=== PATIENT | male | born 1980 | race Caucasian/White ===

== ENCOUNTER 2019-04-23 11:21 | Emergency (ER) | payer MEDICAID ==
[~2019-04-23] VITALS: Ht 180.3 cm; Wt 79.5 kg
[2019-04-23 11:24] VITALS: BP 166/111; Ht 180.3 cm; Wt 79.5 kg
[2019-04-23] MEDS ORDERED: HYDROXYZINE HCL50 MG (11:25)
[2019-04-23] MEDS ORDERED: PRINIVIL10 MG (11:25)
[2019-04-23] MEDS ORDERED: VIBRAMYCIN 100100 MG (11:25)
[2019-04-23] MEDS ORDERED: BUSPAR10 MG (11:25)
[2019-04-23] MEDS ORDERED: CHLORPROMAZINE200 MG (11:26)
[2019-04-23 11:47] LABS: APPEARANCE CLEAR (CLEAR); BILIRUBIN NEGATIVE (NEGATIVE); COLOR YELLOW (YELLOW); GLUCOSE NEGATIVE (NEGATIVE); KETONE NEGATIVE (NEGATIVE); NITRITE NEGATIVE (NEGATIVE); PROTEIN 1+ mg/dL (NEGATIVE); SPECIFIC GRAVITY 1.015 (1.005-1.020); UROBILINOGEN NORMAL (NORMAL)
[2019-04-23 11:48] LABS: BACTERIA FEW /hpf (NEGATIVE); WHITE CELLS - URINE 0-5 /hpf (NEGATIVE)
[2019-04-23 11:50] LABS: BASOPHILS 0.2 % (0-2); EOSINOPHILS 2.1 % (0-7); HEMATOCRIT 47.1 % (42.0-54.0); HEMOGLOBIN 16.8 g/dL (13.5-17.5); IMMATURE GRANULOCYTES 0.2 % (0-5); LYMPHOCYTES 23.2 % (15-50); MCH 31.3 pg (26.0-34.0); MCHC 35.7 g/dL (31.0-37.0); MCV 87.9 fL (80.0-100.0); MEAN PLATELET VOLUME 9.7 fL (7.4-10.4); MONOCYTES 8.4 % (2-11); NEUTROPHILS 65.9 % (40-80); PLATELET COUNT 286 10x3/uL (130-400); RBC 5.36 10x6/uL (4.20-6.10); RDW 12.6 % (11.5-14.5); WBC 9.5 10x3/uL (4.8-10.8)
[2019-04-23 11:57] LABS: CALC OSMOLALITY 275 mosm/kg (275-300); CARBON DIOXIDE 27.5 mmol/L (21.0-32.0); CHLORIDE - SERUM 99 mmol/L (98-107); CREATININE - SERUM 0.7 mg/dL (0.6-1.3); GLUCOSE 162 mg/dL (74-106); POTASSIUM - SERUM 3.8 mmol/L (3.5-5.1); SODIUM 137 mmol/L (136-145); UREA NITROGEN 7 mg/dL (7-18); eGFR NON AFRICAN AMERICAN > 90 mL/min (90-120)
[2019-04-23 11:59] LABS: UDS - AMPHET NEGATIVE QUAL (NEGATIVE); UDS - BARB NEGATIVE QUAL (NEGATIVE); UDS - BENZO NEGATIVE QUAL (NEGATIVE); UDS - COCAINE NEGATIVE QUAL (NEGATIVE); UDS - OPIATE NEGATIVE QUAL (NEGATIVE); UDS - PCP NEGATIVE QUAL (NEGATIVE); UDS - THC POSITIVE QUAL (NEGATIVE)
[2019-04-23 12:04] LABS: ALBUMIN 4.1 g/dL (3.4-5.0); ALKALINE PHOSPHATASE 102 U/L (46-116); ALT (SGPT) 48 U/L (10-68); PROTEIN - SERUM 7.5 g/dL (6.4-8.2)
--- NOTE | 2019-04-23 13:20 | NUR ---
DR ALVAREZ NOTIFIED AND SITTER ORDERED. SITTER AT BEDSIDE. NOTIFIED CHARGE NURSE AND ATTENDING IN REGARDS TO ASSESSMENT FINDINGS. RESOURCES GIVEN TO PT AND SAFETY PLAN INITIATED.
== END 2019-04-23 15:21 ==
LOC: D.ER 11:21
PROVIDERS: Family Medicine
DX: R45.851 Suicidal ideations (principal); R51 Headache; F25.9 Schizoaffective disorder, unspecified; Z91.120 Patient's intentional underdosing of medication regimen due to financial hardship

== ENCOUNTER 2019-05-29 21:17 | Emergency (ER) | payer OTHER ==
[~2019-05-29] VITALS: Ht 180.3 cm; Wt 79.5 kg
[~2019-05-29 21:17] MED LIST: BUSPAR10 MG; CHLORPROMAZINE200 MG; HYDROXYZINE HCL50 MG; PRINIVIL10 MG; VIBRAMYCIN 100100 MG
[2019-05-29 21:27] VITALS: Ht 180.3 cm; Wt 79.5 kg
[2019-05-29] MEDS ORDERED: GEODON20 MG (21:28)
[2019-05-29] MEDS ORDERED: VALIUM5 MG PO (21:28)
[2019-05-29 21:46] LABS: BASOPHILS 0.2 % (0-2); EOSINOPHILS 4.6 % (0-7); HEMATOCRIT 40.7 % (42.0-54.0); HEMOGLOBIN 14.5 g/dL (13.5-17.5); IMMATURE GRANULOCYTES 0.1 % (0-5); LYMPHOCYTES 43.6 % (15-50); MCH 31.1 pg (26.0-34.0); MCHC 35.6 g/dL (31.0-37.0); MCV 87.3 fL (80.0-100.0); MEAN PLATELET VOLUME 9.5 fL (7.4-10.4); MONOCYTES 9.1 % (2-11); NEUTROPHILS 42.4 % (40-80); PLATELET COUNT 306 10x3/uL (130-400); RBC 4.66 10x6/uL (4.20-6.10); RDW 13.1 % (11.5-14.5); WBC 8.8 10x3/uL (4.8-10.8)
[2019-05-29 21:52] LABS: CALC OSMOLALITY 279 mosm/kg (275-300); CALCIUM 8.6 mg/dL (8.5-10.1); CARBON DIOXIDE 33.2 mmol/L (21.0-32.0); CHLORIDE - SERUM 104 mmol/L (98-107); CREATININE - SERUM 0.8 mg/dL (0.6-1.3); POTASSIUM - SERUM 3.1 mmol/L (3.5-5.1); SODIUM 140 mmol/L (136-145); UREA NITROGEN 13 mg/dL (7-18); eGFR NON AFRICAN AMERICAN > 90 mL/min (90-120)
[2019-05-29 21:54] LABS: GLUCOSE 111 mg/dL (74-106)
[2019-05-29 21:59] LABS: ALBUMIN 3.4 g/dL (3.4-5.0); ALKALINE PHOSPHATASE 81 U/L (30-120); ALT (SGPT) 21 U/L (10-68); PROTEIN - SERUM 6.7 g/dL (6.4-8.2)
--- NOTE | 2019-05-29 22:05 | NUR ---
DR ALVAREZ NOTIFIED AND REVIEWED PT'S BEHAVIOR. PT IS HIGH SUICIDE RISK. CURRENTLY SUICIDAL WITH A PLAN TO OVERDOSE ON METH. SITTER ORDERED AND AT BEDSIDE. SAFETY PLAN INITIATED. RESOURCES GIVEN AND PATIENT VERBALIZES UNDERSTANDING.
[2019-05-29 22:07] LABS: APPEARANCE CLEAR (CLEAR); BILIRUBIN NEGATIVE (NEGATIVE); COLOR YELLOW (YELLOW); GLUCOSE NEGATIVE (NEGATIVE); KETONE NEGATIVE (NEGATIVE); NITRITE NEGATIVE (NEGATIVE); PROTEIN NEGATIVE (NEGATIVE); SPECIFIC GRAVITY 1.015 (1.005-1.020); UROBILINOGEN NORMAL (NORMAL)
[2019-05-29 22:08] LABS: BACTERIA FEW /hpf (NEGATIVE); RED CELLS - URINE 0-5 /hpf (0-5); WHITE CELLS - URINE OCC /hpf (NEGATIVE)
[2019-05-29 22:09] LABS: AMORPHOUS SEDIMENT >1+ /lpf (NONE SEEN)
[2019-05-29 22:10] LABS: UDS - AMPHET POSITIVE QUAL (NEGATIVE); UDS - BARB NEGATIVE QUAL (NEGATIVE); UDS - BENZO POSITIVE QUAL (NEGATIVE); UDS - COCAINE NEGATIVE QUAL (NEGATIVE); UDS - OPIATE NEGATIVE QUAL (NEGATIVE); UDS - PCP NEGATIVE QUAL (NEGATIVE); UDS - THC POSITIVE QUAL (NEGATIVE)
[2019-05-30 02:04] VITALS: BP 164/89
== END 2019-05-30 02:04 | disposition other institution (70) ==
LOC: D.ER 21:17
PROVIDERS: Emergency Medicine
DX: R45.851 Suicidal ideations (principal); E87.6 Hypokalemia; F32.9 Major depressive disorder, single episode, unspecified; F19.10 Other psychoactive substance abuse, uncomplicated; I10 Essential (primary) hypertension; Z72.0 Tobacco use